=== PATIENT | female | born 1960 | race American Indian/Alaskan Native ===

== ENCOUNTER 2017-10-08 14:30 | Outpatient (CLI) | payer OTHER ==
[~2017-10-08 14:30] MED LIST: CALTRATE PLUS T1 TAB; CARVEDILOL12.5 MG; GLYCOTROL CAPS1 EACH; GLYXAMBI 10 MG1 EACH; MAXIMUM D310000 UNIT; METFORMIN HCL1000 M1; PLAVIX75 MG; VALSARTAN-HCTZ1 EAC2
== END 2017-10-08 14:36 | disposition home or self-care (01) ==
LOC: RAD 14:30
DX: R10.9 Unspecified abdominal pain (principal)

== ENCOUNTER 2017-10-24 15:12 | Outpatient (CLI) | payer OTHER ==
[~2017-10-24 15:12] MED LIST changes: +NAPR500T14 PO
== END 2017-10-24 15:20 | disposition home or self-care (01) ==
LOC: RAD 15:12
DX: M54.5 Low back pain (principal); M25.552 Pain in left hip

== ENCOUNTER 2019-02-19 17:12 | Outpatient (CLI) | payer OTHER | END 2019-02-19 17:25 | disposition home or self-care (01) | LOC: RAD 17:12 | DX: M54.5 Low back pain (principal) ==

== ENCOUNTER 2020-10-26 15:50 | Outpatient (CLI) | payer OTHER ==
[~2020-10-26 15:50] MED LIST changes: +CIPRO500 MG PO; +NORFLEX100MG PO
== END 2020-10-26 16:00 | disposition home or self-care (01) ==
LOC: LAB 15:50
PROVIDERS: ATTEND Radiology Diagnostic Radiology
DX: Z20.828 Contact with and (suspected) exposure to other viral communicable diseases (principal); R05 Cough; R06.02 Shortness of breath; N20.0 Calculus of kidney

== ENCOUNTER 2020-10-28 09:20 | Outpatient (CLI) | payer OTHER | END 2020-10-28 09:39 | disposition home or self-care (01) | LOC: TOM 09:20 | PROVIDERS: ATTEND Urology | DX: N39.0 Urinary tract infection, site not specified (principal); N32.1 Vesicointestinal fistula ==

== ENCOUNTER 2021-07-25 13:39 | Outpatient (CLI) | payer OTHER | END 2021-07-25 14:03 | disposition home or self-care (01) | LOC: MAMO-SONO 13:39 | PROVIDERS: ATTEND Obstetrics & Gynecology | DX: N60.12 Diffuse cystic mastopathy of left breast (principal); N60.11 Diffuse cystic mastopathy of right breast; Z12.31 Encounter for screening mammogram for malignant neoplasm of breast; R10.2 Pelvic and perineal pain ==

== ENCOUNTER → 2021-08-11 | Outpatient (CLI) | payer OTHER | END | disposition home or self-care (01) | LOC: NUCLEAR 08-03 14:00 | PROVIDERS: ATTEND Obstetrics & Gynecology | DX: M81.0 Age-related osteoporosis without current pathological fracture (principal) ==

== ENCOUNTER → 2022-06-20 | Outpatient (CLI) | payer OTHER | END | disposition home or self-care (01) | LOC: TOM 14:39 | PROVIDERS: ATTEND Internal Medicine Pulmonary Disease | DX: J44.1 Chronic obstructive pulmonary disease with (acute) exacerbation (principal); G47.33 Obstructive sleep apnea (adult) (pediatric); E66.01 Morbid (severe) obesity due to excess calories ==

== ENCOUNTER 2023-08-10 14:16 | Outpatient (CLI) | payer OTHER | END 2023-08-10 14:24 | disposition home or self-care (01) | LOC: SONOGRAMA 14:16 | PROVIDERS: ATTEND Specialist | DX: R31.9 Hematuria, unspecified (principal); M17.11 Unilateral primary osteoarthritis, right knee; M17.12 Unilateral primary osteoarthritis, left knee; M22.41 Chondromalacia patellae, right knee; M22.42 Chondromalacia patellae, left knee; M51.36 Other intervertebral disc degeneration, lumbar region; M16.11 Unilateral primary osteoarthritis, right hip; M16.12 Unilateral primary osteoarthritis, left hip ==

== ENCOUNTER 2025-06-01 13:07 | Outpatient (CLI) | payer OTHER | END 2025-06-01 13:09 | disposition home or self-care (01) | LOC: SONOGRAMA 13:07 | PROVIDERS: ATTEND Internal Medicine | DX: N30.20 Other chronic cystitis without hematuria (principal) ==